=== PATIENT | female | born 1955 | race Caucasian/White ===

== ENCOUNTER 2016-12-15 08:12 | Day surgery (SDC) | payer MEDICAID ==
[~2016-12-15 08:12] MED LIST: ASPIRIN81 M1 PO; DULOXETINE HCL60 M1 PO; NEURONTIN300 M1 PO; NORVASC5 M2 PO; PREMARIN1.25 M1 PO; PROAIR HFA8.5 GM INH; SENNA8.6 M2 PO; SINGULAIR10 M1 PO; SUDAFED 12 HOU120 M1 PO; TUMS200 MG PO; TYLENOL EXTRA500 M1 PO; ZYRTEC10 M7 PO
[2016-12-15 10:56] LABS: CSF GLUCOSE 66 mg/dl (40-75)
[2016-12-15 11:00] LABS: CSF APPEARANCE CLEAR (CLEAR); CSF COLOR COLORLESS (COLORLESS); CSF TUBE NUMBER CSF TUBE 3; CSF VOLUME 16.5 ml; CSF WBC CT 1 cmm (0-10)
[2016-12-15 13:19] LABS: CSF RBC CT 2 cmm (0)
== END 2016-12-15 11:25 ==
LOC: SHSB 08:12
PROVIDERS: Psychiatry & Neurology Neurology
PROC: 009U3ZX Drainage of Spinal Canal, Percutaneous Approach, Diagnostic (ICD-10-PCS; principal; 2016-12-15)
PROC: B01BYZZ Fluoroscopy of Spinal Cord using Other Contrast (ICD-10-PCS; 2016-12-15)
DX: C34.90 Malignant neoplasm of unspecified part of unspecified bronchus or lung (principal); R93.0 Abnormal findings on diagnostic imaging of skull and head, not elsewhere classified; G47.30 Sleep apnea, unspecified
CPT/HCPCS: J7030